=== PATIENT | female | born 1985 ===

== ENCOUNTER 2016-11-03 19:43 | Emergency (ER) | payer OTHER ==
[2016-11-03 19:57] VITALS: BP 145/66; PULSE 80; RESP 16; TEMP 98.2; O2SAT 100
--- NOTE | 2016-11-03 20:17 | ED PDOC ---
HPI: CCC, URI, Sore Throat Time Seen by Provider: 11/03/16 19:46 Chief Complaint (Nursing): ENT Problem Chief Complaint (Provider): ENT Problem History Per: Patient History/Exam Limitations: no limitations Additional Complaint(s): Melissa Rodriguez, 31 year old female presents to the ED stating she has a Q-tip stuck in her right ear canal when cleaning it today. She reports attempting to remove it, without success. The patient denies pain or any hearing changes. PMD: Deanne Deleon MD Past Medical History Reviewed: Historical Data, Nursing Documentation, Vital Signs Vital Signs: Last Vital Signs Temp 98.2 F 11/03/16 19:54 Pulse 80 11/03/16 19:54 Resp 16 11/03/16 19:54 BP 145/66 11/03/16 19:54 Pulse Ox 100 11/03/16 20:51 - Medical History PMH: Asthma - Surgical History Surgical History: - Family History Family History: States: Unknown Family Hx - Home Medications Home Medications: Ambulatory Orders Medication Instructions Recorded Acetaminophen/Tramadol [place] 1 tab PO Q8H #10 tab 01/13/14 [Tramadol/APAP 325 mg-37.5 mg] Ciprofloxacin HCl [Cipro] 500 mg PO BID #20 tab 01/13/14 Naproxen [Naprosyn] 500 mg PO BID PRN #30 tab 11/03/16 Ofloxacin Otic 0.3% [Floxin 0.3% 5 drop AD DAILY #1 bottle 11/03/16 Otic Soln] - Allergies Allergies/Adverse Reactions: Allergies Allergy/AdvReac Type Severity Reaction Status Date / Time No Known Allergies Allergy Verified 01/13/14 11:44 Review of Systems ROS Statement: Except As Marked, All Systems Reviewed And Found Negative ENT: Negative for: Ear Pain, Other (no hearing changes ) Physical Exam - Reviewed Nursing Documentation Reviewed: Yes Vital Signs Reviewed: Yes - Physical Exam Appears: Positive for: Well, Non-toxic, No Acute Distress Head Exam: Positive for: ATRAUMATIC, NORMAL INSPECTION, NORMOCEPHALIC Skin: Positive for: Normal Color, Warm. Negative for: Rash ENT: Positive for: Other (positive white foreign body noted in right ear canal; unable to visualize R TM; L ear WNL) - ECG O2 Sat by Pulse Oximetry: 100 (RA) Pulse Ox Interpretation: Normal - Progress ED Course And Treament: Attempted to remove FB with alligator forceps without success. Post attempt examination revealed no bleeding. TM not completely visualized due to FB. Pt. instructed to f/u with Dr. Chaparro, ENT, for further evaluation without fail. Medical Decision Making Medical Decision Making: Impression: End of cotton swab in right ear canal Plan: * Discussed with pt to follow-up with ENT. Pt agreed to plan. Scribe Attestation: Documented by Arianna Kahn, acting as a scribe for Manuel Morrell PA-C. Provider Scribe Attestation: All medical record entries made by the Scribe were at my direction and personally dictated by me. I have reviewed the chart and agree that the record accurately reflects my personal performance of the history, physical exam, medical decision making, and the department course for this patient. I have also personally directed, reviewed, and agree with the discharge instructions and disposition. Disposition - Clinical Impression Clinical Impression: Foreign body in ear - Patient ED Disposition Is Patient to be Admitted: No - Disposition Referrals: [facility] [Outside] [facility] [Outside] Masoud Chaparro MD [Staff Provider] - Disposition: Routine/Home Disposition Time: 19:20 Condition: STABLE Prescriptions: Naproxen [Naprosyn] 500 mg PO BID PRN #30 tab PRN Reason: Pain Ofloxacin Otic 0.3% [Floxin 0.3% Otic Soln] 5 drop AD DAILY #1 bottle Instructions: Ear Foreign Body (ED) Print Language: [id number]
== END 2016-11-03 21:53 | disposition home or self-care (01) ==
LOC: H.ER 19:43
DX: T16.1XXA Foreign body in right ear, initial encounter (principal)